=== PATIENT | male | born 1995 | race Caucasian/White ===

== ENCOUNTER 2021-06-23 14:28 | Outpatient (REF) | payer OTHER, SELFPAY ==
--- NOTE | ~2021-06-23 | XR_ITS ---
EXAMINATION: XR CHEST CLINICAL INFORMATION: R06.02 - Shortness of breath Patient Shielded? Y COMPARISON: None TECHNIQUE: 2 views of the chest were obtained. FINDINGS: Hyperinflation versus good inspiratory effort. The lungs are clear. The vascularity is normal. There is no airspace consolidation, pneumothorax, pleural reaction, groundglass opacity, or effusion. The heart is normal in size and the hilar and mediastinal contours are normal. The bony structures are unremarkable. XR/XR chest 2V IMPRESSION: Hyperinflation versus good inspiratory effort. Lungs clear.
[2021-06-23 15:37] LABS: Influenza A PCR NEGATIVE (Negative); Influenza B PCR NEGATIVE (Negative); Resp Syncy Virus RNA Qual PCR NEGATIVE (Negative); SARS COV2 PCR INHOUSE NEGATIVE (Negative)
== END 2021-06-23 14:29 | disposition home or self-care (01) ==
LOC: HO.HMGCX 14:28
PROVIDERS: Visit Provider Family Medicine
DX: R06.02 Shortness of breath (principal); Z20.822 Contact with and (suspected) exposure to COVID-19
CPT/HCPCS: 0241U; 36415; 71046